=== PATIENT | male | born 1955 | race Caucasian/White ===

== ENCOUNTER 2022-06-10 13:50 | Emergency (ER) | payer OTHER ==
[~2022-06-10] VITALS: Ht 170.2 cm; Wt 68.0 kg
[2022-06-10 14:03] VITALS: BP_SYST 129
--- NOTE | 2022-06-10 14:30 | NUR ---
PT BIB SELF AWAKE AND ALERT AOX4, NO SOB OR DISTRESS. PT C/O PAIN TO LOWER BACK, 810. PT STATED HE FELL IN BATH TUB ON . PT DENIES N/V. PT DENIES ANYWHERE ELSE ON SELF.
--- NOTE | 2022-06-10 14:32 | NUR ---
MD DR MILLS AT BEDSIDE
[2022-06-10] MEDS ORDERED: KETOROLAC TROMETHAMINE 60 MG/2 ML VIAL IM ONE (14:45)
[2022-06-10] MEDS ORDERED: IBUP-1971 PO (16:31)
[2022-06-10] MEDS ORDERED: HYDR-3917 PO (16:31)
[2022-06-10 17:57] VITALS: BP_SYST 145
--- NOTE | 2022-06-10 19:04 | NUR ---
Patient given written and verbal discharge instructions and verbalizes understanding. ER MD DR MILLS discussed with patient the results and treatment provided. Patient in stable condition. ID arm band removed. Rx of NORCO, MOTRIN given. Patient educated on pain management and to follow up with PMD. Pain Scale 6/10. Opportunity for questions provided and answered. Medication side effect fact sheet provided.
== END 2022-06-10 17:57 | disposition home or self-care (01) ==
LOC: SED 13:50
DX: S32.019A Unspecified fracture of first lumbar vertebra, initial encounter for closed fracture (principal); S32.029A Unspecified fracture of second lumbar vertebra, initial encounter for closed fracture; I10 Essential (primary) hypertension; Z79.899 Other long term (current) drug therapy; W18.2XXA Fall in (into) shower or empty bathtub, initial encounter; Y93.89 Activity, other specified; Y92.89 Other specified places as the place of occurrence of the external cause; Y99.8 Other external cause status
CPT/HCPCS: 99284; 72131; 76376; 96372; J1885